=== PATIENT | male | born 1950 | race Caucasian/White ===

== ENCOUNTER → 2023-06-01 07:36 | Outpatient (REF) | payer MEDICARE, SELFPAY | LOC: SDSPAT 07:36 | PROVIDERS: ATTENDING PHYSICIAN Orthopaedic Surgery Hand Surgery; FAMILY PHYSICIAN Nurse Practitioner | DX: S46.011D Strain of muscle(s) and tendon(s) of the rotator cuff of right shoulder, subsequent encounter (principal) | CPT/HCPCS: 36415; 93005 ==

== ENCOUNTER 2023-08-11 09:54 | Outpatient (RCR) | payer MEDICARE, SELFPAY | END 2023-08-11 23:59 | disposition home or self-care (01) | LOC: RPT 09:54 | PROVIDERS: ATTENDING PHYSICIAN Orthopaedic Surgery Hand Surgery; FAMILY PHYSICIAN Nurse Practitioner | DX: Z47.89 Encounter for other orthopedic aftercare (principal); M76.70 Peroneal tendinitis, unspecified leg (principal); Z98.890 Other specified postprocedural states; Z73.6 Limitation of activities due to disability | CPT/HCPCS: 97010; 97110; 97140 ==

== ENCOUNTER 2023-09-08 09:55 | Outpatient (RCR) | payer MEDICARE, SELFPAY | END 2023-09-08 23:59 | disposition home or self-care (01) | LOC: RPT 09:55 | PROVIDERS: ATTENDING PHYSICIAN Orthopaedic Surgery Hand Surgery; FAMILY PHYSICIAN Nurse Practitioner | DX: M76.70 Peroneal tendinitis, unspecified leg (principal); Z47.89 Encounter for other orthopedic aftercare (principal); Z73.6 Limitation of activities due to disability; Z98.890 Other specified postprocedural states; M62.81 Muscle weakness (generalized) | CPT/HCPCS: 97010; 97110; 97112; 97140 ==

== ENCOUNTER 2023-10-08 08:47 | Outpatient (RCR) | payer MEDICARE, SELFPAY | END 2023-10-08 23:59 | disposition home or self-care (01) | LOC: RPT 08:47 | PROVIDERS: ATTENDING PHYSICIAN Orthopaedic Surgery Hand Surgery; FAMILY PHYSICIAN Nurse Practitioner | DX: M76.62 Achilles tendinitis, left leg (principal); Z98.890 Other specified postprocedural states; Z73.6 Limitation of activities due to disability | CPT/HCPCS: 97010; 97110; 97112; 97140 ==

== ENCOUNTER 2023-11-05 08:53 | Outpatient (RCR) | payer MEDICARE, SELFPAY | END 2023-11-05 23:59 | disposition home or self-care (01) | LOC: RPT 08:53 | PROVIDERS: ATTENDING PHYSICIAN Orthopaedic Surgery Hand Surgery; FAMILY PHYSICIAN Nurse Practitioner | DX: M76.62 Achilles tendinitis, left leg (principal); Z98.890 Other specified postprocedural states; Z73.6 Limitation of activities due to disability | CPT/HCPCS: 97010; 97110; 97112; 97140 ==

== ENCOUNTER 2023-12-10 09:01 | Outpatient (RCR) | payer MEDICARE, SELFPAY | END 2023-12-10 23:59 | disposition home or self-care (01) | LOC: RPT 09:01 | PROVIDERS: ATTENDING PHYSICIAN Orthopaedic Surgery Hand Surgery; FAMILY PHYSICIAN Nurse Practitioner | DX: M76.62 Achilles tendinitis, left leg (principal); Z98.890 Other specified postprocedural states; Z73.6 Limitation of activities due to disability | CPT/HCPCS: 97010; 97110; 97112; 97140 ==

== ENCOUNTER → 2024-01-04 18:34 | Outpatient (REF) | payer MEDICARE, SELFPAY | LOC: RAD 18:34 | PROVIDERS: ATTENDING PHYSICIAN Neurological Surgery; FAMILY PHYSICIAN Family Medicine | DX: Z96.89 Presence of other specified functional implants (principal) | CPT/HCPCS: 71046 ==

== ENCOUNTER 2024-01-05 09:06 | Outpatient (RCR) | payer MEDICARE, SELFPAY | END 2024-01-05 23:59 | disposition home or self-care (01) | LOC: RPT 09:06 | PROVIDERS: ATTENDING PHYSICIAN Orthopaedic Surgery Hand Surgery; FAMILY PHYSICIAN Nurse Practitioner | DX: M76.62 Achilles tendinitis, left leg (principal); Z47.89 Encounter for other orthopedic aftercare (principal); Z98.890 Other specified postprocedural states; M62.81 Muscle weakness (generalized); Z73.6 Limitation of activities due to disability; M25.511 Pain in right shoulder | CPT/HCPCS: 97010; 97110; 97112; 97140; 97530 ==

== ENCOUNTER 2024-01-14 07:52 | Outpatient (RCR) | payer MEDICARE, SELFPAY | END 2024-01-14 23:59 | disposition home or self-care (01) | LOC: RPT 07:52 | PROVIDERS: ATTENDING PHYSICIAN Orthopaedic Surgery Hand Surgery; FAMILY PHYSICIAN Nurse Practitioner | DX: Z47.89 Encounter for other orthopedic aftercare (principal); Z73.6 Limitation of activities due to disability; M62.81 Muscle weakness (generalized); M25.511 Pain in right shoulder; M76.62 Achilles tendinitis, left leg; Z98.890 Other specified postprocedural states | CPT/HCPCS: 97110; 97140; 97530 ==

== ENCOUNTER → 2024-02-24 09:33 | Outpatient (REF) | payer MEDICARE, SELFPAY | LOC: RCS 09:33 | PROVIDERS: ATTENDING PHYSICIAN Internal Medicine Cardiovascular Disease; FAMILY PHYSICIAN Nurse Practitioner | DX: I77.89 Other specified disorders of arteries and arterioles (principal); I49.3 Ventricular premature depolarization; I49.1 Atrial premature depolarization | CPT/HCPCS: 93306 ==

== ENCOUNTER → 2024-05-04 11:58 | Outpatient (REF) | payer MEDICARE, SELFPAY | LOC: RAD 11:58 | PROVIDERS: ATTENDING PHYSICIAN Neurological Surgery; FAMILY PHYSICIAN Family Medicine | DX: M54.16 Radiculopathy, lumbar region (principal) | CPT/HCPCS: 72110; 72131 ==

== ENCOUNTER 2025-05-21 17:07 | Emergency (ER) | payer MEDICARE, SELFPAY ==
[2025-05-21 17:16] VITALS: BP 175/96
[2025-05-21 18:11] VITALS: BP 183/90
[2025-05-21 18:36] LABS: Hematocrit 41.5 % (39.0-52.0); Hemoglobin 13.6 g/dL (13.0-18.0); Mean Corp Hgb Conc. 32.8 g/dL (33.0-37.0); Mean Corpuscular Volume 89.4 fL (80.0-94.0); Nucleated Red Blood Cells % 0 % (-); Platelet Count 174 10^3/uL (130-400); Red Cell Dist. Width 12.7 % (11.5-14.5)
[2025-05-21 18:51] LABS: ALT (SGPT) < 10 U/L (0-50); AST (SGOT) 20 U/L (17-59); Albumin 4.3 g/dl (3.5-5.0); Alkaline Phosphatase 55 U/L (38-126); Blood Urea Nitrogen 17 mg/dl (9-20); Calcium 8.7 mg/dl (8.4-10.2); Carbon Dioxide 28 mmol/L (22-30); Chloride 104 mmol/L (98-107); Glucose 83 mg/dl (70-99); Potassium 4.2 mmol/L (3.5-5.1); Sodium 137 mmol/L (135-145); Total Protein 6.6 g/dl (6.3-8.2); eGFR > 60.00
[2025-05-21 20:23] VITALS: BP 151/87
[2025-05-21 21:00] VITALS: BP 153/87
[2025-05-21 21:49] VITALS: BP 151/90
--- NOTE | 2025-05-22 00:21 | ED.GENMED ---
History of Present Illness
General
Chief Complaint: Swelling
Source: patient
Exam Limitations: none
Time Seen by Provider: 05/21/25 18:06
Nursing documentation reviewed up to this point in time: agreed with
History of Present Illness
History of Present Illness:
Patient to the emergency department with complaint of swelling to his right lower leg. States he frequently gets swelling to his left lower leg but never to the right. He denies any redness or swelling. He was seen by his primary care provider
today and then was advised to come to the emergency department to rule out DVT. He denies any history of DVT. He denies any chest pain or pressure. Reports MICHAUD for approximately the past 6 months. No change in no symptoms. To the emergency
department accompanied by spouse for evaluation.
Past History
Past History
ED Past Medical History: Asthma and Other (Parkinson's disease)
Review of Systems
Review of Systems
Allergies reviewed?: Yes
All Other Systems: ROS reviewed and negative except as documented in HPI and ROS
Constitutional: Reports no symptoms
EENT: Reports no symptoms
Respiratory: Reports other (MICHAUD for the past 6 months)
Cardiac: Reports no symptoms
ABD/GI: Reports no symptoms
: Reports no symptoms
Musculoskeletal: Reports other (Swelling to right lower leg, knee to toes)
Skin: Reports other (Swelling to right lower extremity)
Neurological: Reports no symptoms
Psychiatric: Reports no symptoms
Phy Exam
General Physical Exam
General Presentation: well appearing and no apparent distress
General age: appears stated age
General Skin: warm and dry
General Habitus: normal
General Mental: alert
Cardiovascular Exam
Cardiovascular Exam: regular rate/rhythm
Pulmonary Exam
Pulmonary Exam: lungs clear, no respiratory distress and chest non tender
Musculoskeletal Exam
Musculoskeletal Exam: full ROM, neuro vasc intact and other (+1 edema to right lower leg, knee to toes)
Skin Exam
Skin Exam: normal color, warm/dry, no rash and other (No erythema to right lower extremity)
Psychiatric Exam
Psychiatric Exam: normal mood/affect
Scores
Heart Failure Risk
Heart Failure Risk Score: Not Applicable
Course
Orders/Labs/Results
Orders:
Orders
05/21/25 18:16
Periph Venous Lwr Ext Rt US [US Periph Venous LOWER Ext RT] Urgent
Comment:
Reason For Exam: swelling
05/21/25 18:22
Complete Blood Count/With Diff Urgent
Comprehensive Metabolic Panel Urgent
05/21/25 19:01
CR Chest - 2 Views Urgent
Comment:
Reason For Exam: SOB
Abnormal Lab Results
05/21/25
18:22
RBC 4.64 L 10^6/uL
(4.70-6.10)
MCHC 32.8 L g/dL
(33.0-37.0)
Monocytes % 10.5 H %
(1.7-9.3)
05/21/25 18:22
05/21/25 18:22
Vital Signs
Initial and Last Documented VS:
Initial Vital Signs
Temp Pulse Resp BP Pulse Ox
98.1 F 67 20 175/96 98
05/21/25 17:16 05/21/25 17:16 05/21/25 17:16 05/21/25 17:16 05/21/25 17:16
Last Documented Vital Signs
Temp Pulse Resp BP Pulse Ox
98.1 F 64 16 151/90 97
05/21/25 17:16 05/21/25 18:14 05/21/25 18:14 05/21/25 21:49 05/21/25 21:49
*Radiology
Radiology exam reviewed: radiology read reviewed
*Pulse Oximetry
SaO2: 97
Oxygen Mode of Delivery: Room air
Patient hypoxic: no
*Critical Care Note
Total Time (30-74mins, 75-104mins- exclusive of procedures): Not Applicable
Update Note
Update Note:
Patient to emergency department for evaluation of swelling to his right lower leg. He noted swelling starting in his toes and advancing up towards his knee 4 days ago. Denies any history of trauma. There is no redness or pain to his extremity.
Neurovascularly right lower extremity is intact. He has full range of motion, full sensation to his leg. Peripheral ultrasound completed on right lower extremity. There is no evidence of DVT. Chest x-ray completed NAD. Vital signs are stable he
remains afebrile. Pulse ox 99% on room air. Discussed findings with patient and spouse. Recommend elevating right lower extremity when able, compression stockings during the day. Will discharge home and he will follow-up with his family doctor.
He was given instructions on signs and symptoms to return to the emergency department and he is agreeable to this plan
ED Attending Note
-
Portions of this chart may have been created with voice recognition software.� Occasional wrong word or��sound alike� substitutions may have occurred due to the inherent limitations of voice recognition software.
Discharge Plan
Departure
Patient Disposition: Home (Routine Discharge)
Date of Disposition: 05/21/25
Time of Disposition: 21:56
Patient with high blood pressure during this ER visit?: No
Condition: Good
Covid-19: Not Applicable
Discharge Problem:
Leg swelling
Instructions: Dependent Edema (DC)
Prescriptions:
No Action
carbidopa-levodopa 25-100 mg Tablet
1 tab PO Q3H
cyanocobalamin (vitamin B-12) [Vitamin B-12] 1,000 mcg Tablet
1,000 mcg PO DAILY
calcium 100 mg Capsule
200 mg PO DAILY
albuterol sulfate 90 mcg/actuation Aerosol Powdr Breath Activated
2 inh INHALATION Q4H PRN (Reason: sob)
Fluticasone-Salmererol
1 puff inhalation BID
Rx Instructions:
55-14mcg/act
PreserVision AREDS
1 tab PO DAILY
Vitamin D3
1 tab PO DAILY
multivitamin
1 tab PO DAILY
zinc
1 tab PO DAILY
flaxseed oil-omega 3,6,9 1,300 mg-845 mg -117 mg-117 mg Capsule
1 cap PO BID
Referrals:
Piter Monahan PA-C [Family Provider, Family Practice] - Follow up in 2-3 days
Activity Restrictions/Additional Instructions:
Return to the emergency department for any changes in/worsening of your symptoms
Interventions
Interventions:
*Risk Screen - Suicide Last Done: 05/21/25 17:16
*General Assessment Last Done: 05/21/25 17:16
*Neglect/Abuse Screening Last Done: 05/21/25 17:16
*ED- Fall Risk Assessment Last Done: 05/21/25 18:14
*ED COVID-19 Vaccine History Last Done: 05/21/25 18:14
*ED Influenza Vaccine History Last Done: 05/21/25 18:14
*Nursing Disposition Last Done: 05/21/25 22:12
ED- Cardiac Assessment Last Done: 05/21/25 18:14
ED- Pulmonary Assessment Last Done: 05/21/25 18:14
ED-Skin Assessment Last Done: 05/21/25 18:14
Discharge Date and Time
Discharge Date/Time: 05/21/25 22:12
Print Language: HUNGARIAN
== END 2025-05-21 22:12 | disposition home or self-care (01) ==
LOC: EMR 17:07
PROVIDERS: Nurse Practitioner; EMERGENCY PHYSICIAN Emergency Medicine; FAMILY PHYSICIAN Physician Assistant Medical
DX: R22.41 Localized swelling, mass and lump, right lower limb (principal); J45.909 Unspecified asthma, uncomplicated; G20.A1 Parkinson's disease without dyskinesia, without mention of fluctuations
CPT/HCPCS: 99284; 71046; 80053; 85025; 93971

== ENCOUNTER 2025-06-06 07:11 | Outpatient (RCR) | payer MEDICARE, SELFPAY | END 2025-06-06 23:59 | disposition home or self-care (01) | LOC: RPT 07:11 | PROVIDERS: ATTENDING PHYSICIAN Student in an Organized Health Care Education/Training Program; FAMILY PHYSICIAN Nurse Practitioner | DX: G20.A1 Parkinson's disease without dyskinesia, without mention of fluctuations (principal); Z73.6 Limitation of activities due to disability; R26.89 Other abnormalities of gait and mobility | CPT/HCPCS: 97110; 97112; 97162; 97166; 97530; 97535 ==

== ENCOUNTER 2025-06-15 08:15 | Outpatient (RCR) | payer MEDICARE, SELFPAY | END 2025-06-15 11:14 | disposition home or self-care (01) | LOC: RPT 08:15 | PROVIDERS: ATTENDING PHYSICIAN Student in an Organized Health Care Education/Training Program; FAMILY PHYSICIAN Nurse Practitioner | DX: G20.A1 Parkinson's disease without dyskinesia, without mention of fluctuations (principal); Z73.6 Limitation of activities due to disability; R26.89 Other abnormalities of gait and mobility; M25.552 Pain in left hip | CPT/HCPCS: 97110; 97112; 97140; 97530; 97535 ==

== ENCOUNTER → 2025-07-06 10:15 | Outpatient (REF) | payer MEDICARE, SELFPAY | LOC: RCS 10:15 | PROVIDERS: ATTENDING PHYSICIAN Internal Medicine Cardiovascular Disease; FAMILY PHYSICIAN Nurse Practitioner | DX: I77.89 Other specified disorders of arteries and arterioles (principal) | CPT/HCPCS: 93306 ==